=== PATIENT | male | born 1955 | race Caucasian/White ===

== ENCOUNTER 2020-03-13 11:53 | Emergency (ER) | payer BC ==
[~2020-03-13] VITALS: Ht 172.7 cm; Wt 97.5 kg
[2020-03-13 12:19] VITALS: BP_SYST 117
--- NOTE | 2020-03-13 12:28 | NUR ---
TRIAGED IN TEN
[2020-03-13] MEDS ORDERED: NACL 0.9% 1,000 ML IV ONE (12:30)
[2020-03-13 13:48] LABS: CALCIUM 8.3 mg/dL (8.4-11.0); CREATININE 1.39 mg/dL (0.55-1.30); POTASSIUM 3.7 mmol/L (3.5-5.1)
[2020-03-13 14:15] VITALS: BP_SYST 140
--- NOTE | 2020-03-13 14:15 | NUR ---
Patient given written and verbal discharge instructions and verbalizes understanding. ER MD discussed with patient the results and treatment provided. Patient in stable condition. ID arm band removed. Rx of NONE given. Patient educated on pain management and to follow up with PMD. Pain Scale 0/10 Opportunity for questions provided and answered. Medication side effect fact sheet provided.
== END 2020-03-13 14:15 | disposition home or self-care (01) ==
LOC: SED 11:53
DX: E11.65 Type 2 diabetes mellitus with hyperglycemia (principal)
CPT/HCPCS: 36415; 80048; 99283